=== PATIENT | male | born 1955 | race Caucasian/White ===

== ENCOUNTER 2018-02-04 10:53 | Outpatient (CLI) | payer OTHER, SELFPAY ==
[2018-02-04 13:20] LABS: Cholesterol 185 mg/dL (50-200); HDL Cholesterol 38 mg/dL (40-60); LDL CHOLESTEROL 115 mg/dL (<100); TSH 1.37 uIU/mL (0.358-3.74); Triglyceride 176 mg/dL (30-150)
== END 2018-02-04 11:13 ==
PROVIDERS: PCP Emergency Medicine; Visit Provider Emergency Medicine
DX: E78.5 Hyperlipidemia, unspecified (principal)
CPT/HCPCS: 80061; 83721; 84443